=== PATIENT | female | born 1950 | race Two or more races ===

== ENCOUNTER 2025-02-11 16:01 | Outpatient (CLI) | payer OTHER ==
[~2025-02-11 16:01] MED LIST: CLONAZEPAM0.25 MG PO; OMEGA 3-6-9 11200 M1 PO; PROBIOTIC1 EAC4; ROSUVASTATIN CA10 MG PO; TOPROL XL50 M1 PO; VASOTEC20 M1 PO
== END 2025-02-11 16:06 | disposition home or self-care (01) ==
LOC: LAB 16:01
PROVIDERS: ATTEND Specialist
DX: L02.91 Cutaneous abscess, unspecified (principal)

== ENCOUNTER 2025-03-22 08:53 | Inpatient (IN) | payer OTHER ==
[~2025-03-22] VITALS: Ht 157.5 cm; Wt 59.0 kg
[2025-03-29] MEDS ORDERED: LIDOCAINE HCL 1%/EPINEPHRINE 20ML VIAL IJ ONE (12:45)
[2025-03-29] MEDS ORDERED: CEFTRIAXONE SODIUM 2,000 MG VIAL IV ONE (12:45)
[2025-03-29] MEDS ORDERED: BUPIVACAINE HCL 30 ML VIAL IJ ONE (12:45)
[2025-03-29] MEDS ORDERED: METRONIDAZOLE/SODIUM CHLORIDE 500 MG/100 ML PIGGYBACK IV ONE ×2 (12:45→19:05)
[2025-03-29] MEDS ORDERED: OxyCODONE HCL 5 MG TABLET (ROXICODONE) PO PRN (14:00)
[2025-03-29] MEDS ORDERED: MORPHINE SULFATE 4 MG/ML CARTRIDGE IV PRN (14:00)
[2025-03-29] MEDS ORDERED: ONDANSETRON HCL 2 MG/ML VIAL IV PRN (14:00)
[2025-03-29] MEDS ORDERED: DEXTROSE 50 % IN WATER 0.5 G/ML VIAL IV PRN (14:00)
[2025-03-29] MEDS ORDERED: 0.9 % SODIUM CHLORIDE 1,000 ML IV SCH (14:00)
[2025-03-29] MEDS ORDERED: ACETAMINOPHEN 500 MG GEL..CAP PO SCH (14:00)
[2025-03-29] MEDS ORDERED: POLYETHYLENE GLYCOL 3350 17 GM BLIST.PACK PO SCH (17:00)
[2025-03-29] MEDS ORDERED: GABAPENTIN 300 MG CAPSULE PO SCH (17:00)
[2025-03-29] MEDS ORDERED: METRONIDAZOLE/SODIUM CHLORIDE 500 MG/100 ML PIGGYBACK IV SCH (17:00)
[2025-03-29] MEDS ORDERED: HYOSCYAMINE SULFATE 0.125 MG TAB.SUBL SL SCH (17:00)
[2025-03-29] MEDS ORDERED: ACETAMINOPHEN 500 MG GEL..CAP PO ONE (19:05)
[2025-03-29 19:50] VITALS: BP 145/78; O2SAT 100
[2025-03-29 19:52] LABS: ABG PH 7.325 (7.35-7.45); ABG PO2 229.3 mmHg (80-100); ABG pCO2 51.9 mmHg (35-45); BASE EXCESS -0.5 mmol/l; BICARBONATE 26.4 mmol/l (23-25); SaO2 99.7 %
[2025-03-29 19:53] LABS: allen test SATISFACTORY; mode SIMPLE MASK; o2 40 %; puncture site RADIAL LEFT
[2025-03-29] MEDS ORDERED: CELECOXIB 200 MG CAPSULE PO SCH (21:00)
[2025-03-29] MEDS ORDERED: FAMOTIDINE/PF 20 MG/2 ML VIAL IV PUSH SCH (21:00)
[2025-03-29 21:30] VITALS: O2SAT 98
[2025-03-30] VITALS (9 sets, daily range): BP systolic 110–129; BP diastolic 66–71; O2SAT 90–100
[2025-03-30 07:25] LABS: ALBUMIN 3.1 gm/dL (3.4-5.0); CALCIUM 8.1 mg/dL (8.5-10.1); CREATININE SERUM 0.7 mg/dL (0.55-1.02); GFR 82.02; MAGNESIUM 1.6 mg/dL (1.8-2.4); PHOSPHOROUS 2.9 mg/dL (2.5-4.9); POTASSIUM 4.45 mEq/L (3.5-5.1)
[2025-03-30 09:23] LABS: HEMATOCRIT 34.9 % (34.1-44.9); HEMOGLOBIN 11.5 g/dL (11.2-15.7); MEAN CORPUSCULAR HEMOGLOBIN 30.5 pg (25.6-32.2); PLATELET COUNT 254 K/uL (163-369); RED BLOOD COUNT 3.77 M/uL (3.93-5.22); RED CELL DISTRIBUTION WIDTH 14.3 % (11.6-14.4)
[2025-03-30 09:24] LABS: BASO % 0.1 % (0.1-1.2); EOS # 0.01 (0.04-0.54); LYMPH # 0.84 (1.18-3.74); LYMPH % 20.1 % (19.3-53.1); NEUT # 1.53 (1.56-6.13); NEUT % 68.4 % (34.0-71.1)
[2025-03-30] MEDS ORDERED: MAGNESIUM SULFATE IN WATER 50 ML IV NR (10:00)
[2025-03-30] MEDS ORDERED: ENOXAPARIN SODIUM 40 MG/0.4 ML SYRINGE SUBCUTANEO SCH (17:00)
[2025-03-31 00:38] VITALS: O2SAT 96
[2025-03-31 01:01] VITALS: BP 114/62; O2SAT 100
[2025-03-31 05:38] VITALS: O2SAT 96
[2025-03-31 07:02] LABS: BASO % 0.2 % (0.1-1.2); EOS # 0.06 (0.04-0.54); EOS % 0.7 % (0.7-7.0); HEMATOCRIT 32.7 % (34.1-44.9); HEMOGLOBIN 11.1 g/dL (11.2-15.7); LYMPH # 1.68 (1.18-3.74); LYMPH % 18.6 % (19.3-53.1); MEAN CORPUSCULAR HEMOGLOBIN 31.3 pg (25.6-32.2); MONO % 7.8 % (4.7-12.5); NEUT # 6.54 (1.56-6.13); NEUT % 72.4 % (34.0-71.1); PLATELET COUNT 223 K/uL (163-369); RED BLOOD COUNT 3.55 M/uL (3.93-5.22); RED CELL DISTRIBUTION WIDTH 14.2 % (11.6-14.4)
[2025-03-31 07:23] LABS: CALCIUM 8.1 mg/dL (8.5-10.1); CREATININE SERUM 0.57 mg/dL (0.55-1.02); GFR 103.97; MAGNESIUM 2.4 mg/dL (1.8-2.4); POTASSIUM 3.75 mEq/L (3.5-5.1)
[2025-03-31 07:35] LABS: PHOSPHOROUS 1.3 mg/dL (2.5-4.9)
[2025-03-31 08:15] VITALS: BP 155/85; O2SAT 95
[2025-03-31] MEDS ORDERED: ENOXAPARIN SODIUM 40 MG/0.4 ML SYRINGE SUBCUTANEO SCH (09:00)
[2025-03-31] MEDS ORDERED: POTASSIUM PHOS,M-BASIC-D-BASIC 15 MM in 0.9 % SODIUM CHLORIDE 250 ML IV ONE (09:00)
[2025-03-31 09:50] VITALS: O2SAT 96
[2025-03-31] MEDS ORDERED: CLONAZEPAM 0.5 MG TABLET PO SCH (11:19)
[2025-03-31] MEDS ORDERED: ENALAPRILAT DIHYDRATE 1.25 MG/ML VIAL IV PRN (12:00)
[2025-03-31] MEDS ORDERED: ENALAPRIL MALEATE 20 MG TABLET PO NR (12:30)
[2025-03-31] MEDS ORDERED: METOPROLOL SUCCINATE 50 MG TAB.SR.24H PO NR (12:30)
[2025-03-31 14:18] LABS: BASO % 0.4 % (0.1-1.2); EOS # 0.01 (0.04-0.54); EOS % 0.1 % (0.7-7.0); LYMPH # 1.44 (1.18-3.74); LYMPH % 17.4 % (19.3-53.1); MEAN CORPUSCULAR HEMOGLOBIN 30.2 pg (25.6-32.2); MONO # 0.69 (0.24-0.82); MONO % 8.4 % (4.7-12.5); NEUT # 6.07 (1.56-6.13); NEUT % 73.5 % (34.0-71.1); PLATELET COUNT 214 K/uL (163-369); RED BLOOD COUNT 3.64 M/uL (3.93-5.22); RED CELL DISTRIBUTION WIDTH 14.1 % (11.6-14.4)
[2025-03-31 16:55] VITALS: BP 188/75; O2SAT 97
[2025-03-31] MEDS ORDERED: GABAPENTIN 100 MG CAPSULE PO SCH (17:00)
[2025-03-31] MEDS ORDERED: ROSUVASTATIN CALCIUM 10 MG TABLET PO SCH (17:00)
[2025-03-31] MEDS ORDERED: GABAPENTIN 300 MG CAPSULE PO SCH (21:00)
[2025-03-31] MEDS ORDERED: ENALAPRIL MALEATE 10 MG TABLET PO SCH (21:00)
[2025-04-01] VITALS: O2SAT 90
[2025-04-01 00:26] VITALS: BP 161/67; O2SAT 94
[2025-04-01 06:55] LABS: BASO % 0.3 % (0.1-1.2); EOS % 1.4 % (0.7-7.0); HEMATOCRIT 33.2 % (34.1-44.9); HEMOGLOBIN 11.1 g/dL (11.2-15.7); LYMPH # 1.15 (1.18-3.74); LYMPH % 15.8 % (19.3-53.1); MEAN CORPUSCULAR HEMOGLOBIN 30.2 pg (25.6-32.2); MONO # 0.58 (0.24-0.82); NEUT # 5.39 (1.56-6.13); PLATELET COUNT 245 K/uL (163-369); RED BLOOD COUNT 3.68 M/uL (3.93-5.22); RED CELL DISTRIBUTION WIDTH 14.2 % (11.6-14.4)
[2025-04-01 08:00] VITALS: BP 164/80; O2SAT 96
[2025-04-01] MEDS ORDERED: ENALAPRIL MALEATE 20 MG TABLET PO SCH (09:00)
[2025-04-01] MEDS ORDERED: METOPROLOL SUCCINATE 50 MG TAB.SR.24H PO SCH (09:00)
[2025-04-01] MEDS ORDERED: TRAM1TAB98 PO (15:40)
[2025-04-01] MEDS ORDERED: PEPCID AC20 MG PO (15:41)
[2025-04-01 16:11] VITALS: BP 180/73; O2SAT 97
== END 2025-04-01 19:10 | disposition home or self-care (01) | DRG 330 ==
LOC: O/R 03-29 06:11 → SURG 03-29 06:11 → SURH 03-29 09:00 → SURG 03-29 19:57
PROVIDERS: Internal Medicine Geriatric Medicine; ADMIT Surgery; ATTEND Surgery
PROC: 0DBP4ZZ Excision of Rectum, Percutaneous Endoscopic Approach (ICD-10-PCS; 2025-03-29)
PROC: 0DJ08ZZ Inspection of Upper Intestinal Tract, Via Natural or Artificial Opening Endoscopic (ICD-10-PCS; 2025-03-29)
PROC: 4A12X4Z Monitoring of Cardiac Electrical Activity, External Approach (ICD-10-PCS; 2025-03-29)
PROC: 0DTN4ZZ Resection of Sigmoid Colon, Percutaneous Endoscopic Approach (ICD-10-PCS; principal; 2025-03-29 10:30)
DX: K57.32 Diverticulitis of large intestine without perforation or abscess without bleeding (principal); K56.609 Unspecified intestinal obstruction, unspecified as to partial versus complete obstruction; R19.4 Change in bowel habit; I11.9 Hypertensive heart disease without heart failure